=== PATIENT | female | born 1950 ===

== ENCOUNTER → 2016-09-12 | Outpatient (CLI) | payer MEDICARE ==
[~2016-09-12] VITALS: Ht 157.5 cm; Wt 85.7 kg
[~2016-09-12] MED LIST: AMLO-512 PO; CALC-911 PO; CETI-260 PO; CRAN500C2 PO; FISH400C3 PO; GLUC100019 PO; MONT10TA21 PO; VITA150T PO
[2016-09-12 12:23] VITALS: BP 143/98
== END | disposition home or self-care (01) ==
LOC: SRCNTR 12:12
PROVIDERS: ATTEND Internal Medicine
DX: I10 Essential (primary) hypertension (principal); C18.9 Malignant neoplasm of colon, unspecified; R59.0 Localized enlarged lymph nodes; Z85.038 Personal history of other malignant neoplasm of large intestine; Z92.21 Personal history of antineoplastic chemotherapy
CPT/HCPCS: G0463

== ENCOUNTER → 2016-10-03 | Outpatient (CLI) | payer MEDICARE ==
[~2016-10-03] VITALS: Ht 157.5 cm; Wt 85.0 kg
[2016-10-03 12:42] VITALS: BP 141/87
== END | disposition home or self-care (01) ==
LOC: SRCNTR 12:36
PROVIDERS: ATTEND Internal Medicine
DX: C18.9 Malignant neoplasm of colon, unspecified (principal); R59.0 Localized enlarged lymph nodes; I10 Essential (primary) hypertension; Z92.21 Personal history of antineoplastic chemotherapy
CPT/HCPCS: G0463

== ENCOUNTER → 2016-10-10 | Outpatient (CLI) | payer MEDICARE ==
[~2016-10-10] VITALS: Ht 157.5 cm; Wt 84.5 kg
[2016-10-10 12:40] VITALS: BP 142/74
== END | disposition home or self-care (01) ==
LOC: SRCNTR 12:31
PROVIDERS: ATTEND Internal Medicine
DX: C18.9 Malignant neoplasm of colon, unspecified (principal); I10 Essential (primary) hypertension; R59.0 Localized enlarged lymph nodes; R91.8 Other nonspecific abnormal finding of lung field; Z92.21 Personal history of antineoplastic chemotherapy
CPT/HCPCS: G0463